=== PATIENT | female | born 1980 | race Caucasian/White ===

== ENCOUNTER → 2019-05-23 | Outpatient (CLI) | payer BC ==
--- NOTE | 2019-05-23 15:07 | PCVCIMAG ---
APPROVED REPORT Study performed: 05/23/2019 12:59:58 Exam: Stress Echocardiogram Indication: abn ekg, chest pain Patient Location: Echo lab Stress Nurse: Su Ramos RN Status: routine Ht: 5 ft 10 in HR: 68 bpm BP: 124/90 mmHg Rhythm: NSR Procedure The patient underwent an Exercise Stress Test using the Andres Protocol. Blood pressure, heart rate, and EKG were monitored. An Echocardiogram was performed by solar installer technician in four stages in quad fashion. At peak stress, four selected images were obtained and placed side by side with resting images for comparison. Stress Test Details Stress Test: Exercise stress testing was performed using a Andres protocol. HR Resting HR: 68 bpmMax Heart Rate (APMHR): 184 bpm Max HR Achieved: 160 bpmTarget HR (85% APMHR): 156 bpm % of APMHR: 86 Recovery HR: 76 bpm HR response to stress: Normal HR response to stress BP Resting BP: 124/90 mmHg Max BP: 172/82 mmHg Recovery BP: 138/82 mmHg BP response to stress: Normal blood pressure response to stress. ECG Resting ECG: Sinus Rhythm Stress ECG: Sinus Rhythm ST Change: Normal Arrhythmia: PVCs Recovery ECG: Sinus Rhythm Recovery ST Change: Normal Recovery Arrhythmia: Bigeminy PVCs that resoled to NSR Clinical Reason for Termination: Maximal effort Stress Symptoms: Dyspnea Exercise duration: 10 min 53 sec Highest Stage Achieved: Stage 4: 4.2 mph at 16% grade. Exercise capacity: 13.7 METs Overall Exercise Capacity for Age: Good Scale: Active Angina Score: None Stress ECG Conclusion 1. Subjectively negative for ischemia 2. Elective cartographic a negative for ischemia 3. Satisfactory functional capacity Pre-Stress Echo The resting Echocardiogram showed normal left ventricular contractility with an estimated Ejection Fraction of about >55%. Normal wall motion in all segments on baseline images. Post-Stress Echo The stress Echocardiogram showed normal left ventricular contractility with an estimated Ejection Fraction of about 65%. Normal augmentation of wall motion in all segments on post stress images. Clinical No clinical or ECG evidence for ischemia. Conclusion Clinical Response: Non-ischemic Exercise Capacity: Average Stress ECG Response: Non-ischemic Stress Echo Images: Non-ischemic The left ventricle is normal in size and wall thickness in both the rest and stress images. 1. Low risk study Other Information Study Quality: Adequate <Conclusion> The left ventricle is normal in size and wall thickness in both the rest and stress images. 1. Low risk study
== END | disposition home or self-care (01) ==
LOC: PCVCIMAG 13:20
PROVIDERS: ATTEND Internal Medicine
DX: R94.31 Abnormal electrocardiogram [ECG] [EKG] (principal); R07.9 Chest pain, unspecified
CPT/HCPCS: 93325; 93351